=== PATIENT | male | born 1950 | race Caucasian/White ===

== ENCOUNTER → 2017-01-30 | Day surgery (SDC) | payer OTHER ==
[~2017-01-30] MED LIST: ASPIRIN81 MG PO; AVODART0.5 MG PO; B-COMPLEX PLUS1 EACH PO; BENICAR HCT 40-1 TAB PO; BENICAR PO; BYETTA10 MCG/0.0 INJ; GLUCOPHAGE XR500 MG PO; GLUCOTROL XL PO; HYZAAR 100-12.1 EACH PO; JARDIANCE10 MG PO; LIPITOR40 MG PO; METFORMIN HCL500 M4 PO; METFORMIN PO; ONGLYZA2.5 MG PO; UROXATRAL10 MG PO; VITAMIN B-122000 MC1 PO; ZOCOR PO; [UNRECOGNIZED DRUG - CODE] PO
--- NOTE | ~2017-01-30 | OR ---
Unit #: [id number] #: [id number] Patient: JACQUELINE DIAZ [id number] [address] [place], [place] [address] [id number] MR#: [id number] NAME: JACQUELINE DIAZ ROOM: Date of Procedure: 01/30/2017 Admission Date: 01/30/2017 Surgeon: Mandeep Mendoza M.D. : 1950 Attending Physician: Mandeep Mendoza M.D. Primary Care Physician: Deedee Conway M.D. OPERATIVE REPORT PREOPERATIVE DIAGNOSIS Colorectal cancer screening in an average-risk patient. PROCEDURE PERFORMED Colonoscopy up to cecum with good prep and visualization. POSTOPERATIVE DIAGNOSES Scant sigmoid and descending colon diverticulosis. Otherwise, normal examination up to cecum. The quality of the prep was good. RECOMMENDATIONS Repeat colonoscopy in 10 years. SEDATION USED MAC. DESCRIPTION OF PROCEDURE Following detailed explanation of the potential risks and complications of a colonoscopy, namely perforation, bleeding, and complications related to sedation, the patient was brought to GI lab and laid in the left lateral decubitus position. A digital rectal examination was performed, which was normal. Lubricated tip of the Olympus video colonoscope was inserted through the anus and advanced under direct vision. The scope was advanced past rectosigmoid into descending colon. Scant small diverticula were seen in this area. The scope tip was then navigated all the way up to cecum with visualization of the ileocecal valve and the appendiceal orifice. Preparation was good with good visualization and photodocumentation was obtained. Successive segments of the colonic mucosa were examined upon withdrawal and appeared unremarkable. There being no polyps, mass lesions, or AVMs. Other than the scant diverticula seen earlier, no other abnormalities were noted. The patient did not have any hemorrhoids at anal verge. The scope was then withdrawn and the patient returned to the recovery area. He tolerated the procedure without any postprocedure complications. Dictated by... Vic Heredia/felton Unit #: [id number] #: [id number] Patient: JACQUELINE DIAZ TD: 01/30/2017 10:36 JOB #: [id number] OPERATIVE REPORT Page 1 of 1 X Mandeep Mendoza MD PROCEDURE OPERATIVE NOTE
== END | disposition home or self-care (01) ==
LOC: COPS 06:23
DX: Z12.11 Encounter for screening for malignant neoplasm of colon (principal); K57.30 Diverticulosis of large intestine without perforation or abscess without bleeding; E11.9 Type 2 diabetes mellitus without complications; I10 Essential (primary) hypertension; G47.30 Sleep apnea, unspecified; N40.0 Benign prostatic hyperplasia without lower urinary tract symptoms; Z79.84 Long term (current) use of oral hypoglycemic drugs; Z79.82 Long term (current) use of aspirin; Z79.899 Other long term (current) drug therapy; Z96.641 Presence of right artificial hip joint; Z98.890 Other specified postprocedural states
CPT/HCPCS: 82947; J2250